=== PATIENT | female | born 1940 | race Caucasian/White ===

== ENCOUNTER 2019-09-27 03:42 | Emergency (ER) | payer MEDICARE ==
[~2019-09-27] VITALS: Ht 162.6 cm; Wt 85.7 kg
[2019-09-27] MEDS ORDERED: PANTOPRAZOLE 40 MG 10ML VIAL IV STA (03:51)
[2019-09-27 04:25] LABS: BASOPHILS # (AUTO) 0.1 (0.0-0.1); BASOPHILS % 0.6 % (0.0-1.0); EOSINOPHILS # (AUTO) 0.2 (0.0-0.4); EOSINOPHILS % 1.6 % (0.0-6.0); HEMATOCRIT 40.2 % (34.2-44.1); HEMOGLOBIN 13.3 g/dL (12.0-16.0); LYMPHOCYTES # (AUTO) 2.9 (1.0-3.2); LYMPHOCYTES % 29.8 % (18.0-39.1); MEAN CORPUSCULAR HEMOGLOBIN 30.3 pg (28-32); MEAN CORPUSCULAR HGB CONC 33.1 g/dL (31-35); MEAN CORPUSCULAR VOLUME 91.6 fL (81-99); MONOCYTES # (AUTO) 0.7 (0.2-0.8); MONOCYTES % 6.8 % (4.4-11.3); NEUTROPHILS % 60.9 % (38.7-80.0); PLATELET COUNT 222 x10e3/uL (140-360); RED BLOOD COUNT 4.39 x10e6/uL (3.6-5.1); RED CELL DISTRIBUTION WIDTH 12.6 % (11.7-14.4)
[2019-09-27 04:43] LABS: ALBUMIN 3.9 g/dL (3.5-5.0); ALBUMIN/GLOBULIN RATIO 1.1 (0.8-2.0); ANION GAP 15.3 mmol/L (8-16); CALCIUM 10.6 mg/dL (8.4-10.2); CREATININE, SERUM 1.96 mg/dL (0.57-1.11); POTASSIUM 4.3 mmol/L (3.5-5.1)
[2019-09-27 04:44] LABS: AMYLASE 27 U/L (25-125); LIPASE 35 U/L (8-78)
[2019-09-27 04:52] LABS: CREATINE KINASE MB 1.6 ng/mL (0-5.0)
--- NOTE | 2019-09-27 05:05 | Diagnostic Imaging Report ---
EXAMINATION: CHEST SINGLE (PORTABLE) INDICATION: Chest pain COMPARISON: None FINDINGS: TUBES and LINES: None. LUNGS: Hyperinflated lungs. Mild central bronchial wall thickening. No consolidations. PLEURA: No pleural effusion or pneumothorax. HEART AND MEDIASTINUM: The cardiomediastinal silhouette is unremarkable. There are atherosclerotic calcifications within the aorta. BONES AND SOFT TISSUES: Degenerative changes in the spine and shoulders. Soft tissues are unremarkable. UPPER ABDOMEN: No free air under the diaphragm. IMPRESSION: Findings can be seen with pulmonary emphysema and bronchitis. Signed by: Fernando Iraheta DO on 09/27/2019 5:02 AM
[2019-09-27] MEDS ORDERED: INSULIN REGULAR, HUMAN 100 UNIT/1 ML 3ML VIAL SQ ONE (05:15)
[2019-09-27 06:46] VITALS: BP 169/62
== END 2019-09-27 07:11 | disposition home or self-care (01) ==
LOC: ER 03:42
DX: R10.13 Epigastric pain (principal); K21.9 Gastro-esophageal reflux disease without esophagitis; R73.9 Hyperglycemia, unspecified; I10 Essential (primary) hypertension; E78.5 Hyperlipidemia, unspecified; F32.9 Major depressive disorder, single episode, unspecified
CPT/HCPCS: 36415; 71045; 80053; 82150; 82550; 82553; 82948; 83690; 84484; 85025; 93005; 99284; C9113

== ENCOUNTER 2019-09-29 17:35 | Emergency (ER) | payer MEDICARE ==
[~2019-09-29] VITALS: Ht 162.6 cm; Wt 85.7 kg
--- OUTSIDE RECORDS SUMMARY | 2019-09-29 17:38 | XMS REPORT ---
Author Author [facility] Address Unknown Phone Unavailable Care Team Providers Care Heat Treatment Technician Name Role Phone Agusto ROBIN Unavailable Unavailable Problems This patient has no known problems. Allergies, Adverse Reactions, Alerts This patient has no known allergies or adverse reactions. Medications This patient has no known medications. Results Test Description Test Time Test Comments Text Results Atomic Results Result Comments CHEST SINGLE (PORTABLE) 2019-09-27 05:01:00 [place] [address] Patient Name: JOSE FLORENTINO MR #: [id number] : 1940 Age/Sex: 78/F Req #: [id number] Adm Physician: Ordered by: GARETH ROBIN MD Report #: [id number] Location: ER Room/Bed: Procedure: [id number] DX/CHEST SINGLE (PORTABLE) Exam Date: Exam Time: REPORT STATUS: Signed EXAMINATION: CHEST SINGLE (PORTABLE) INDICATION: Chest pain COMPARISON: None FINDINGS: TUBES and LINES: None. LUNGS: Hyperinflated lungs. Mild central bronchial wall thickening. No consolidations. PLEURA: No pleural effusion or pneumothorax. HEART AND MEDIASTINUM: The cardiomediastinal silhouette is unremarkable. There are atherosclerotic calcifications within the aorta. BONES AND SOFT TISSUES: Degenerative changes in the spine and shoulders. Soft tissues are unremarkable. UPPER ABDOMEN: No free air under the diaphragm. IMPRESSION: Findings can be seen with pulmonary emphysema and bronchitis. Signed by: Fernando Iraheta DO on 09/27/2019 5:02 AM Dictated By: FERNANDO IRAHETA DO 1 Transcribed By: JOSSELYN on 09/27/19501 COPY TO: GARETH ROBIN MD
[2019-09-29 19:01] LABS: BASOPHILS % 0.3 % (0.0-1.0); EOSINOPHILS # (AUTO) 0.1 (0.0-0.4); EOSINOPHILS % 0.8 % (0.0-6.0); HEMATOCRIT 38.9 % (34.2-44.1); HEMOGLOBIN 12.5 g/dL (12.0-16.0); LYMPHOCYTES # (AUTO) 1.8 (1.0-3.2); LYMPHOCYTES % 19.1 % (18.0-39.1); MEAN CORPUSCULAR HEMOGLOBIN 29.8 pg (28-32); MEAN CORPUSCULAR HGB CONC 32.1 g/dL (31-35); MEAN CORPUSCULAR VOLUME 92.8 fL (81-99); MONOCYTES # (AUTO) 1.1 (0.2-0.8); MONOCYTES % 11.7 % (4.4-11.3); NEUTROPHILS # (AUTO) 6.4 (2.1-6.9); NEUTROPHILS % 67.6 % (38.7-80.0); PLATELET COUNT 196 x10e3/uL (140-360); RED BLOOD COUNT 4.19 x10e6/uL (3.6-5.1); RED CELL DISTRIBUTION WIDTH 12.9 % (11.7-14.4)
[2019-09-29 19:11] LABS: INR 0.93
[2019-09-29 19:12] LABS: PARTIAL THROMBOPLASTIN TIME 28.6 seconds (23.8-35.5)
[2019-09-29 19:24] LABS: ALBUMIN 3.5 g/dL (3.5-5.0); ALBUMIN/GLOBULIN RATIO 0.9 (0.8-2.0); ANION GAP 15.2 mmol/L (8-16); CALCIUM 9.4 mg/dL (8.4-10.2); CREATININE, SERUM 2.71 mg/dL (0.57-1.11); POTASSIUM 4.2 mmol/L (3.5-5.1)
[2019-09-29 19:25] LABS: CREATINE KINASE MB 1.4 ng/mL (0-5.0)
[2019-09-29 19:26] LABS: BILIRUBIN,URINE NEGATIVE (NEGATIVE); CLARITY,URINE SL CLOUDY (CLEAR); COLOR,URINE YELLOW (YELLOW); KETONES,URINE NEGATIVE (NEGATIVE); PROTEIN,URINE DIPSTICK NEGATIVE (NEGATIVE); URINE UROBILINOGEN 0.2 mg/dL (0.2 - 1)
[2019-09-29 19:27] LABS: B-TYPE NATRIURETIC PEPTIDE2 45.6 pg/mL (0-100)
[2019-09-29 19:27] LABS: BACTERIA,URINE MODERATE /HPF; EPITHELIAL CELLS,URINE FEW /LPF; LEUKOCYTE ESTERASE ,URINE 2+ (NEGATIVE); NITRITE,URINE POSITIVE (NEGATIVE); RBC,URINE 0-5 /HPF (0-5); WBC,URINE (MAN) 21-50 /HPF (0-5)
[2019-09-29] MEDS ORDERED: SODIUM CHLORIDE 0.9% 500ML 500 ML IV STA (19:53)
--- NOTE | 2019-09-29 19:56 | Diagnostic Imaging Report ---
Hip complete Indication: Pain ^fall ^Y Technique: AP and frogleg views of left hip obtained. Comparison: None Findings: Left hip remains properly located. The cortex appears intact throughout. Trochanters appear intact. Minimal spurring evident from the superior acetabulum. Adjacent pubic rami appear intact. The right hip appears intact and normally situated. Lower lumbar spine demonstrates no abnormalities. Vascular calcification in the pelvis and proximal lower extremities. IMPRESSION: Left hip properly located. No convincing evidence for fracture. Signed by: Dr. Jeffrey Henderson MD on 09/29/2019 7:53 PM
--- NOTE | 2019-09-29 19:58 | Diagnostic Imaging Report ---
Left complete knee. CPT CODE: 01253. INDICATION: Fall, pain ^ORDER PLACED BY ^[id number] ^1850 ^Y COMPARISON: None FINDINGS: The bones are diffusely demineralized. Moderate medial, lateral, patellofemoral compartment narrowing. No fracture or dislocation. The patella is normally situated. No knee effusion. There are calcifications throughout the arterial structures. IMPRESSION: No acute traumatic pathology. Moderate tricompartmental osteoarthritis. Signed by: Dr. Jeffrey Henderson MD on 09/29/2019 7:55 PM
--- NOTE | 2019-09-29 19:59 | Diagnostic Imaging Report ---
EXAMINATION: CHEST SINGLE (NOT PORTABLE) COMPARISON: Chest x-ray 09/27/2019 INDICATION: Fall ^ERMD ORDER ^[id number] ^1850 ^Y DISCUSSION: Frontal view of the chest obtained at 1902 hours. HEART AND MEDIASTINUM: The heart is top normal in size. The descending thoracic aorta is tortuous. LINES: None. LUNGS: Diffuse hyperinflation. No pneumonia or pulmonary edema. PLEURA: No pleural effusion or pneumothorax. Stable eventration of the right diaphragm. BONES AND SOFT TISSUES: The bones are intact. Degenerative changes of the shoulders are stable. Surgical clips at the GE junction are stable. IMPRESSION: No acute traumatic pathology. No acute cardiopulmonary process. Signed by: Dr. Jeffrey Henderson MD on 09/29/2019 7:57 PM
[2019-09-29] MEDS ORDERED: INSULIN REGULAR, HUMAN 100 UNIT/1 ML 3ML VIAL IV ONE (20:00)
--- NOTE | 2019-09-29 21:31 | NUR ---
[facility] called for transportation at this time.
[2019-09-29 21:39] VITALS: BP 119/52
--- NOTE | 2019-09-29 22:02 | NUR ---
[facility] here for patient.
== END 2019-09-29 22:05 | disposition home or self-care (01) ==
LOC: ER 17:35
DX: S80.02XA Contusion of left knee, initial encounter (principal); M25.552 Pain in left hip; W01.0XXA Fall on same level from slipping, tripping and stumbling without subsequent striking against object, initial encounter; Y92.008 Other place in unspecified non-institutional (private) residence as the place of occurrence of the external cause; I10 Essential (primary) hypertension; E78.5 Hyperlipidemia, unspecified; G62.9 Polyneuropathy, unspecified; K21.9 Gastro-esophageal reflux disease without esophagitis
CPT/HCPCS: 36415; 71045; 73502; 73562; 80053; 81001; 82550; 82553; 82948; 83605; 83880; 84484; 85025; 85610; 85730; 87040; 87086; 87186; 93005; 99284; J1817; J7040

== ENCOUNTER 2019-10-28 21:49 | Observation (INO) | payer MEDICARE ==
[~2019-10-28] VITALS: Ht 165.1 cm; Wt 88.5 kg
[2019-10-28] MEDS ORDERED: SODIUM CHLORIDE 0.9% 1000ML 1,000 ML IV STA (21:54)
[2019-10-28] MEDS ORDERED: ASPIRIN 81 MG CHEW TAB PO ONE (22:00)
[2019-10-28 22:49] LABS: BASOPHILS % 0.3 % (0.0-1.0); HEMATOCRIT 40.1 % (34.2-44.1); LYMPHOCYTES # (AUTO) 1.8 (1.0-3.2); LYMPHOCYTES % 15.4 % (18.0-39.1); MEAN CORPUSCULAR HEMOGLOBIN 29.6 pg (28-32); MEAN CORPUSCULAR HGB CONC 32.4 g/dL (31-35); MEAN CORPUSCULAR VOLUME 91.3 fL (81-99); MONOCYTES # (AUTO) 0.8 (0.2-0.8); MONOCYTES % 6.8 % (4.4-11.3); NEUTROPHILS # (AUTO) 8.8 (2.1-6.9); NEUTROPHILS % 77.2 % (38.7-80.0); PLATELET COUNT 350 x10e3/uL (140-360); RED BLOOD COUNT 4.39 x10e6/uL (3.6-5.1)
[2019-10-28 23:03] LABS: ALANINE AMINOTRANSFERASE 17 IU/L (0-55); ALBUMIN 3.6 g/dL (3.5-5.0); ALBUMIN/GLOBULIN RATIO 1.1 (0.8-2.0); ALKALINE PHOSPHATASE 105 IU/L (40-150); ANION GAP 20.7 mmol/L (8-16); BLOOD UREA NITROGEN 34 mg/dL (7-26); BUN/CREATININE RATIO 17 (6-25); CALCIUM 10.4 mg/dL (8.4-10.2); CARBON DIOXIDE 23 mmol/L (22-29); CHLORIDE 99 mmol/L (98-107); CREATINE KINASE 277 IU/L (29-168); CREATININE, SERUM 2.03 mg/dL (0.57-1.11); EST GLOMERULAR FILTRATION RATE 24 ML/MIN (60-); GLUCOSE 369 mg/dL (74-118); POTASSIUM 4.7 mmol/L (3.5-5.1); SODIUM 138 mmol/L (136-145)
--- NOTE | 2019-10-28 23:31 | Diagnostic Imaging Report ---
History:Fall Comparison studies: None Technique: Axial images were obtained from the skull base to the vertex. Coronal and sagittal images reconstructed from the axial data. Dose modulation, iterative reconstruction, and/or weight based adjustment of the mA/kV was utilized to reduce the radiation dose to as low as reasonably achievable. Intravenous contrast: None Findings: Scalp/skull: No abnormalities. Extra-axial spaces: No masses. No fluid collections. Brain sulci: Moderately prominent. Ventricles: Moderate compensatory dilatation. No hydrocephalus. Parenchyma: Describe hypodensities in the supratentorial white matter are small vessel ischemic changes. No masses, hemorrhage, acute or chronic cortical vascular insults. Sellar/suprasellar region: No abnormalities. Craniocervical junction: Patent foramen magnum. No Chiari one malformation. Incidental findings: Atherosclerotic calcifications in the carotid siphons and bilateral intracranial vertebral arteries.. Impression: 1. No acute intracranial abnormalities. 2. Moderate age-related generalized volume loss. Signed by: Dr. Yovany Lake M.D. on 10/28/2019 11:27 PM
--- NOTE | 2019-10-28 23:37 | Diagnostic Imaging Report ---
History: Fall Comparison studies: None Technique: Axial images were obtained through the cervical region.. Coronal and sagittal images reconstructed from the axial data. Dose modulation, iterative reconstruction, and/or weight based adjustment of the mA/kV was utilized to reduce the radiation dose to as low as reasonably achievable. Intravenous contrast: None Findings: Fractures: None. Soft tissues: Coarse atherosclerotic calcifications in the aortic arch and carotid bulbs. Atlantoaxial articulation: Mildly degenerated. Alignment: Straightening of the usual lordosis is probably positional. 2 mm anterolisthesis of C4 on C5. No scoliosis. Cervicomedullary junction: No abnormalities. The foramen magnum is patent. Vertebrae: Bones moderately demineralized. No infection or neoplasm. Degenerative changes: * Moderately degenerated disks from C5 to T1. * The facets are fused at C2-3,, degenerated throughout the cervical region, worst right at C3-4. * Foraminal stenosis, mild right at C3-4, left at C4-5 and C5-6 due to facet and uncoarthrosis. * Superimposed mild spinal canal stenosis at C5-6 and C6-7 due to disc osteophyte complexes. IMPRESSION: 1. No acute abnormalities. 2. Specifically, no fractures or subluxations. 3. Cannot adequately evaluate for ligament, spinal cord and or vascular abnormalities. 4. Bones are moderately demineralized. Extensive degenerative changes as described Signed by: Dr. Yovany Lake M.D. on 10/28/2019 11:33 PM
[2019-10-29] VITALS (8 sets, daily range): BP systolic 111–175; BP diastolic 56–77
--- NOTE | 2019-10-29 00:21 | Diagnostic Imaging Report ---
EXAMINATION: CHEST 2 VIEWS INDICATION: Fall. COMPARISON: Chest radiograph 09/29/2019. FINDINGS: TUBES and LINES: None. LUNGS: Hyperinflated lungs. There is no evidence of pneumonia or pulmonary edema. Right apical pleural-parenchymal opacity, likely scarring. PLEURA: No pleural effusion or pneumothorax. HEART AND MEDIASTINUM: The cardiomediastinal silhouette is unremarkable. There are atherosclerotic calcifications within the aorta. BONES AND SOFT TISSUES: No acute osseous lesion. Soft tissues are unremarkable. Surgical clips project over the left lower hemithorax and upper abdomen. UPPER ABDOMEN: No free air under the diaphragm. IMPRESSION: No evidence of acute traumatic abnormality. Emphysematous lungs. Signed by: Dr. Godfrey Macedo MD on 10/29/2019 12:18 AM
--- NOTE | 2019-10-29 00:21 | Diagnostic Imaging Report ---
EXAM: Lumbar spine radiographs-2 views INDICATION: Fall. COMPARISON: None FINDINGS: BONES: Levoconvex scoliosis of the lumbar spine, centered at L3. Grade 1 anterolisthesis of L4 on L5. No acute displaced fractures. Vertebral body heights are preserved. Diffuse osteopenia. DISCS: Multilevel moderate to severe degenerative disc changes. JOINTS: Moderate facet degenerative changes. SOFT TISSUES: Atherosclerotic vascular calcifications. Surgical clips project over the left hemiabdomen. IMPRESSION: Diffuse osteopenia without evidence of acute osseous abnormality. Degenerative changes as above. Signed by: Dr. Godfrey Macedo MD on 10/29/2019 12:18 AM
--- NOTE | 2019-10-29 01:48 | NUR ---
Benny Boss (Son) Contact# Clarisa Gera (Daughter) Contact#
--- NOTE | 2019-10-29 02:26 | NUR ---
RECEIVED PATIENT FROM THE ER PER STRETCHER, PATIENT POSITIONED IN HER BED AND RADIOLOGY PRESENT TO DO XRAYS.
[2019-10-29] MEDS: SODIUM CHLORIDE 0.9% 1000ML 1,000 ML IV SCH ×3 (02:52→18:52)
--- NOTE | 2019-10-29 02:58 | Diagnostic Imaging Report ---
Exam: Left tibia/fibula radiographs - 2 views Clinical History: Left pain. Comparison: None. Findings/Impression: No evidence of acute fracture or malalignment. Mild soft tissue edema in the medial ankle. Diffuse osteopenia. Moderate to severe degenerative changes of the knee. Signed by: Dr. Godfrey Macedo MD on 10/29/2019 2:54 AM
--- NOTE | 2019-10-29 03:28 | Diagnostic Imaging Report ---
Exam: Left femur radiographs-3 views History: Left leg pain. Comparison: None. Findings: Somewhat limited portable radiographs. Diffuse osteopenia. No evidence of acute fracture or malalignment. Moderate to severe degenerative changes of the knee. Mild left hip degenerative changes. Diffuse atherosclerotic vascular calcifications. Impression: No acute osseous abnormality. Signed by: Dr. Godfrey Macedo MD on 10/29/2019 3:25 AM
[2019-10-29] MEDS ORDERED: DEXTROSE 50% SYRINGE 50 ML IV PRN (04:45)
--- NOTE | 2019-10-29 07:24 | NUR ---
REPORT GIVEN TO AM NURSE.
[2019-10-29] MEDS: INSULIN REGULAR, HUMAN 100 UNIT/1 ML 3ML VIAL SQ SCH ×4 (07:30→20:39)
--- NOTE | 2019-10-29 07:35 | NUR ---
PATIENT IN BED RESTING WITH NO S/S OF DISTRESS. TELEMETRY BOX [address] BED IN LOWER POSITION, CALL LIGHT AT REACH.
[2019-10-29 08:04] LABS: CREATINE KINASE MB 9.3 ng/mL (0-5.0)
--- NOTE | 2019-10-29 10:05 | NUR ---
ASSESSMENT: Spiritual concern Pt worried about 's health. Pt states she recently had an "episode" and is at a local hospital. Pt states she is still grieving about her son's over 1 year ago. Pt identifies as Ep[employer]opalian. Intervention: Provided unhurried pastoral presence and empathic listening. Facilitated storytelling. Provided prayer. Provided information on how to reach fur glazer, if needed. Outcome: Pt expressed appreciation for visit. No need to follow at this time. CYNTHIA WASHINGTON Biometrics Instructor Spiritual Care Department O: [phone]
[2019-10-29 15:10] LABS: CREATINE KINASE MB 8.8 ng/mL (0-5.0)
--- NOTE | 2019-10-29 15:34 | NUR ---
PATIENT EXERCISED IN ROOM WITH PHYSICAL THERAPY. OUT OF BED TO CHAIR, ASSISTED BACK TO BED. CALL LIGHT AT REACH.
--- NOTE | 2019-10-29 18:11 | NUR ---
CALL PLACED TO [employer], MESSAGE LEFT TO PROVIDE HOSPITAL WITH HOME MEDICATION LIST.
[2019-10-29 18:53] LABS: BILIRUBIN,URINE SMALL (NEGATIVE); CLARITY,URINE SL CLOUDY (CLEAR); COLOR,URINE YELLOW (YELLOW); KETONES,URINE TRACE (NEGATIVE); LEUKOCYTE ESTERASE ,URINE SMALL (NEGATIVE); NITRITE,URINE NEGATIVE (NEGATIVE); PROTEIN,URINE DIPSTICK 1+ (NEGATIVE); URINE UROBILINOGEN 0.2 mg/dL (0.2 - 1)
[2019-10-29 19:04] LABS: BACTERIA,URINE MANY /HPF; WBC,URINE (MAN) 21-50 /HPF (0-5)
--- NOTE | 2019-10-29 19:41 | NUR ---
RECEIVED REPORT FROM 7AM NURSE, PATIENT RESTING COMFORTABLE IN BED, WILL CONTINUE TO MONITOR. CALL LIGHT IN REACH.
[2019-10-30 00:07] VITALS: BP 189/80
[2019-10-30] MEDS: SODIUM CHLORIDE 0.9% 1000ML 1,000 ML IV SCH ×2 (01:31→08:27)
--- NOTE | 2019-10-30 03:23 | NUR ---
CONTINUE RESTING, NO COMPLAINTS VOICED. CALL LIGHT REMAIN IN REACH. WILL CONTINUE TO MONITOR.
[2019-10-30 04:00] VITALS: BP 182/84
[2019-10-30 04:59] VITALS: BP 162/74
[2019-10-30 06:17] LABS: BASOPHILS # (AUTO) 0.1 (0.0-0.1); EOSINOPHILS # (AUTO) 0.4 (0.0-0.4); EOSINOPHILS % 4.4 % (0.0-6.0); HEMATOCRIT 36.3 % (34.2-44.1); HEMOGLOBIN 11.6 g/dL (12.0-16.0); LYMPHOCYTES # (AUTO) 2.9 (1.0-3.2); LYMPHOCYTES % 34.6 % (18.0-39.1); MEAN CORPUSCULAR HEMOGLOBIN 29.8 pg (28-32); MEAN CORPUSCULAR VOLUME 93.3 fL (81-99); MONOCYTES # (AUTO) 0.7 (0.2-0.8); MONOCYTES % 8.7 % (4.4-11.3); NEUTROPHILS # (AUTO) 4.3 (2.1-6.9); NEUTROPHILS % 50.7 % (38.7-80.0); PLATELET COUNT 278 x10e3/uL (140-360); RED BLOOD COUNT 3.89 x10e6/uL (3.6-5.1); RED CELL DISTRIBUTION WIDTH 13.4 % (11.7-14.4)
[2019-10-30 06:42] LABS: CHOL/HDL RATIO 3.4 (3.0-3.6); MAGNESIUM 1.4 MG/DL (1.3-2.1)
[2019-10-30 07:02] LABS: THYROID STIMULATING HORMONE 1.539 uIU/mL (0.350-4.940)
--- NOTE | 2019-10-30 07:06 | NUR ---
REPORT GIVEN TO AM NURSE, PATIENT CONTINUE RESTING, WILL CONTINUE TO MONITOR.
[2019-10-30 07:30] LABS: ALBUMIN 2.8 g/dL (3.5-5.0); ALBUMIN/GLOBULIN RATIO 1.1 (0.8-2.0); ANION GAP 13.5 mmol/L (8-16); CALCIUM 8.5 mg/dL (8.4-10.2); CREATININE, SERUM 1.67 mg/dL (0.57-1.11); POTASSIUM 3.5 mmol/L (3.5-5.1)
[2019-10-30] MEDS: INSULIN REGULAR, HUMAN 100 UNIT/1 ML 3ML VIAL SQ SCH ×3 (07:30→16:42)
[2019-10-30 08:00] VITALS: BP 137/63
[2019-10-30 08:35] VITALS: BP 137/63
--- NOTE | 2019-10-30 10:32 | NUR ---
CALLED AND LEFT MESSAGES FOR SON AND DAUGHTER. SPOKE WITH PT ABOUT CHOICES FOR SNF, SHE SIGNED CHOICE FOR [facility], FILED IN CHART, OBTAINED SIGNATURES FOR COVID FORM FILED IN CHART, COMPLETED PASRR FILED IN CHART AND FAXED CLINICALS TO [facility].
--- NOTE | 2019-10-30 11:33 | NUR ---
FAXED CLINICALS WITH PASRR AND COVID ASSESSMENT FORM. PUT COPIES OF PASRR AND COVID FORM IN CHART. WAITING FOR AUTH.
--- NOTE | 2019-10-30 11:35 | NUR ---
EDUCATED ABOUT IMM OBTAINED SIGNATURE FILED IN CHART AND LEFT COPY BEDSIDE FOR RECORDS.
[2019-10-30 12:00] VITALS: BP 166/75
--- NOTE | 2019-10-30 13:56 | NUR ---
ALF FACILITY DISCHARGE INFORMATION PATIENT HAS BEEN ACCEPTED TO: NAME: [facility] ADDRESS: [id number] [facility] ACCEPTING BANKING CONSULTANT: JOSÉ LUIS LEWIS MD: NOHEMY ROOM:601 NURSE CALL REPORT TO: [phone] IMM SIGNED AND OBTAINED (if applicable): IMM THE FOLLOWING DOCUMENTS MUST ACCOMPANY PATIENT FOR TRANSFER: COPIED CHART: PACKET
--- NOTE | 2019-10-30 16:53 | NUR ---
Nutrition Screen Note RD Recommendation for Physician: -Continue current diet as ordered -Encourage Glucerna nutrition supplements Plan of Care: RD following, monitoring for tolerance and adequacy Nutrition reason for involvement: Nutrition Risk Trigger MST 3 Primary Diagnose(s): dizziness, rhabdomyolysis, left leg pain PMH: HTN, GERD, HLD, neuropathy, type 2 diabetes, hypothyroid, and depression Ht: 65 in Wt:195 lb BMI: 32.4 kg/m2 IBW:[address] Assessment: (10/30/19) Chart reviewed. Labs and meds reviewed. Pt is a 79 year old female admitted with dizziness, rhabdomyolysis, left leg pain. Pt reports she has been eating <50% of her meals for the past 2-3 days. Pt also reported a 10-15 lb weight loss in the past month. Pt reported she weighed 210 lbs a month ago. Pt currently has a weight of 195 lbs in chart. This would be a 7% weight loss in 1 month which is considered significant weight loss. Offered pt Glucerna nutrition supplements, but she declined. No N/V/D/C or chewing/swallowing issues. Will continue to monitor. Current Diet: 1800 kcal ADA Malnutrition Evaluation (10/30/19) The patient does not meet criteria for a specified degree of malnutrition at this time. Will re-evaluate at follow-up as appropriate. Energy intake: <50% of estimated energy requirements for 2-3 days Weight loss: >5% in 1 month (Acute) Fat loss: unable to evaluate Muscle loss: unable to evaluate Supporting Evidence: Fluid accumulation: unable to evaluate Functional Status: unable to evaluate Diet Education Needs Assessment: Pt declined diet education materials Nutrition Care Level: low Signed: Eve Nam, MING, LD
--- NOTE | 2019-10-30 17:24 | NUR ---
Pt discharged to [facility]. Pt is aox3 at time of discharge and denies any pain at time of discharge. Pt was discharged with all personal belongings. Family notified at time of transfer. Report was given at 1500 to nurse who will receive patient.
--- NOTE | 2019-10-30 20:20 | Discharge Summary ---
ADMISSION DIAGNOSES: 1. Fall. 2. Chronic kidney disease 3. 3. Rhabdo. 4. Type 2 diabetes. 5. Hypothyroidism. 6. Hypertension. 7. Obesity with a BMI of 32.4. DISCHARGE DIAGNOSES: 1. Fall. 2. Chronic kidney disease 3. 3. Rhabdo. 4. Type 2 diabetes. 5. Hypothyroidism. 6. Hypertension. 7. Obesity with a BMI of 32.4. HISTORY: Hypertension, GERD, hyperlipidemia, fibromyalgia, neuropathy, type 2 diabetes, hypothyroidism, depression. SURGICAL HISTORY: Cholecystectomy, T and A , tubal ligation, Alirio-en-Y. FAMILY HISTORY: The patient's son has diabetes. The patient's mom has cancer. SOCIAL HISTORY: Noncontributory. HOSPITAL COURSE: A -sypy-qsk female admitted with status post fall yesterday morning. She got out of bed and felt dizzy and her legs gave out. She falls about two or three times a week when her legs give out. She admits to having an injury to her leg a few months ago, which was the reason her legs gave out. On admission, the patient had a lumbar x-ray, chest x-ray, CT of the brain, CT of the C-spine, x-ray of the left lower extremity and femur all of which were negative. Her CK on admission was 277. She was given IV fluid. Bilateral carotid Doppler showed evidence of carotid disease without significant stenosis. Left lower extremity venous Doppler was negative. Echo showed an EF of 55%. PT evaluated the patient and said SNF placement was necessary. She was discharged to the [facility] for more physical therapy. The patient understands discharge instructions and agrees to plan. The patient is unsure of which medication she uses and says [facility]idi would have a list of her medicine. After two days on the phone with Heidi, the nurse is still unable to get any medication list. She was discharged to the long term and her son will go into the patient's house tomorrow to call the home medicine list to the long term. The patient and son understand discharge instructions and agrees to plan. Vital signs stable, the patient afebrile. Dictated by Haily Field NP MD MAURIZIO Kan/ANUP Larson: 10/30/2019 19:25:41 /[id number]
== END 2019-10-30 17:25 ==
LOC: ER 21:49 → ERHOLD 10-29 01:33 → MED/SURG3 10-29 02:23
PROVIDERS: ADMIT Internal Medicine; ATTEND Internal Medicine
DX: M62.82 Rhabdomyolysis (principal); I12.9 Hypertensive chronic kidney disease with stage 1 through stage 4 chronic kidney disease, or unspecified chronic kidney disease; N18.3 Chronic kidney disease, stage 3 (moderate); E11.65 Type 2 diabetes mellitus with hyperglycemia; E11.42 Type 2 diabetes mellitus with diabetic polyneuropathy; E03.9 Hypothyroidism, unspecified; E66.9 Obesity, unspecified; Z68.32 Body mass index [BMI] 32.0-32.9, adult; Z88.5 Allergy status to narcotic agent; Z88.0 Allergy status to penicillin; K21.9 Gastro-esophageal reflux disease without esophagitis; E78.5 Hyperlipidemia, unspecified; Z90.49 Acquired absence of other specified parts of digestive tract; Z83.3 Family history of diabetes mellitus; Z80.9 Family history of malignant neoplasm, unspecified; W01.0XXA Fall on same level from slipping, tripping and stumbling without subsequent striking against object, initial encounter
CPT/HCPCS: 36415; 70450; 71046; 72100; 72125; 80053; 80061; 81001; 82140; 82550; 82553; 82948; 83036; 83735; 84443; 84484; 85025; 87086; 93005; 93306; 93880; 93971; 96372; 97139; 99285; G0378; J1817; J7030